=== PATIENT | female | born 1935 | race Caucasian/White ===

== ENCOUNTER → 2017-07-10 | Outpatient (CLI) | payer MEDICARE, BC ==
[~2017-07-10] MED LIST: ALPRAZOLAM; ALPRAZOLAM PO; AMIODARONE PO; CARTIA XT PO; CEFTIN PO; GARLIC CAPSULE PO; NICOTINE TRANSD21 MG EXT; OYSTER CALCIUM500 MG PO; PEPCID; PEPCID AC20 MG PO; PREDNISONE10 MG/DOSE PO; SPIRIVA18 MCG; VIT E PO; VITAMIN C PO; XOPENEX1.25 MG/3 IH
--- NOTE | ~2017-07-10 | US136 ---
[facility] A Service of [facility] RADIOLOGY TEXT RESULTS PATIENT: DINH LUBIN LOCATION: CNIV : 35 UNIT #: [id number] AGE: [address]: Jennifer Caballero MD SEX: F ORDER DR: [id number] [facility] [address] [place], [place] [address] [id number] O MR#: [id number] Acc #: [id number] NAME: DINH LUBIN : 1935 SEX: F STUDY DATE/TIME: 07/10/2017 14:41 UNIT: CNIV ROOM: STUDY DESCRIPTION: US U/L Ext Art Study [facility] Bil Attending Physician: Jennifer Caballero M.D. Referring Physician: Jennifer Caballero M.D. Ordering Physician: Jennifer Caballero M.D. Primary Care Physician: Bora Lay M.D. MEDICAL IMAGING REPORT This report is preliminary unless electronic signature is present EXAM Ankle-brachial indices. HISTORY Decreased pedal pulses. FINDINGS The right brachial pressure is 127 and the left brachial pressure is 118. The right dorsalis pedis pressure is 85, posterior tibial 96 and toes 79 for an ankle-brachial index of 0.76. Toe-brachial index on the right is 0.62. The left dorsalis pedis pressure is 87, posterior tibial 94, and toe 55 for ankle-brachial index of 0.74. Toe-brachial index on the left is 0.43. Pulse-volume recording tracings demonstrate dampening of the amplitude of the signal at the ankle and digital level on both sides. There is a biphasic waveform in the posterior tibial and dorsalis pedis arteries bilaterally. IMPRESSION Moderate ischemia of both legs. Ankle-brachial index is 0.76 on the right and 0.74 on the left. Dictated by... Jose Alfredo Pitts M.D. THIS IS AN ELECTRONICALLY VERIFIED REPORT [facility] A Service of [facility] RADIOLOGY TEXT RESULTS PATIENT: DINH LUBIN LOCATION: CNIV : 35 UNIT #: [id number] AGE: [address]: Jennifer Caballero MD SEX: F ORDER DR: Jose Alfredo Pitts M.D. at 07/12/2017 7:27 AM MALENA/estrada TD: 07/11/2017 10:40 JOB #: [id number] MEDICAL IMAGING REPORT Page 1 of 1 COPY
== END | disposition home or self-care (01) ==
LOC: CNIV 14:26
DX: R09.89 Other specified symptoms and signs involving the circulatory and respiratory systems (principal); I99.8 Other disorder of circulatory system
CPT/HCPCS: 93922